=== PATIENT | female | born 1970 ===

== ENCOUNTER 2017-02-23 00:02 | Emergency (ER) ==
--- NOTE | 2017-02-23 10:38 | EKG REPORT ---
SEVERITY:- NORMAL ECG - SINUS RHYTHM : Confirmed by: Yara Jones MD 23-Feb-2017 10:37:16
== END 2017-02-23 03:40 | disposition left against medical advice (07) ==
LOC: ER 00:02
DX: Z53.21 Procedure and treatment not carried out due to patient leaving prior to being seen by health care provider (principal)
CPT/HCPCS: 93005; 93010